=== PATIENT | male | born 1960 | race Caucasian/White ===

== ENCOUNTER 2020-01-03 11:49 | Emergency (ER) | payer BC ==
[2020-01-03] MEDS ORDERED: Meclizine 12.5 MG Tab PO ONE ×2 (11:50→14:46)
[2020-01-03 12:31] LABS: CHLORIDE,CL 102 mEq/L (98-106); SODIUM,NA 139 mEq/L (136-145)
[2020-01-03] MEDS ORDERED: Acetaminophen 500 MG Tab PO ONE (14:23)
[2020-01-03] MEDS ORDERED: Sodium Chloride 0.9% 1,000 ML IV ONE (14:24)
--- NOTE | 2020-01-03 14:51 | EDM.PDOC ---
ED HPI GENERAL MEDICAL PROBLEM - General Chief Complaint: General Stated Complaint: "I dizzy" Time Seen by Provider: 01/03/20 11:58 Source of Information: Reports: Patient History Limitations: Reports: No Limitations - History of Present Illness INITIAL COMMENTS - FREE TEXT/NARRATIVE: Patient is a 59 year old male that presents to the ER. Patient reports that since this morning having dizziness, worse with opening eyes, then closing eyes , and positional changes. Patient reports that he also has a numb headache sensation to the right frontal head. Patient reports he thought his blood pressure was up. Onset: Today Onset Date: 01/03/20 Onset Time: 08:00 Location: Reports: Head Severity: Moderate Improves with: Reports: None Worsens with: Reports: None Associated Symptoms: Reports: Headaches. Denies: Confusion, Chest Pain, Cough, cough w sputum, Diaphoresis, Fever/Chills, Loss of Appetite, Malaise, Nausea/ Vomiting, Rash, Seizure, Shortness of Breath, Syncope, Weakness - Related Data Allergies Allergy/AdvReac Type Severity Reaction Status Date / Time atorvastatin [From Lipitor] Allergy ach Verified 01/03/20 11:57 Home Meds: Home Meds Cholecalciferol (Vitamin D3) [Vitamin D3] 50 mcg PO DAILY PRN 01/03/20 [History] Cinnamon Bark [Cinnamon] 500 mg PO DAILY 01/03/20 [History] Cranberry Fruit Extract [Cranberry] 600 mg PO DAILY 01/03/20 [History] Fluticasone Propionate [Flonase Allergy Relief] 50 mcg INH DAILY PRN 01/03/20 [ History] Glucosam/Chondr/Collagn/Hyalur [Glucosamine & Chondroitin Cap] 1 tab PO DAILY [History] Inulin/Chromium Picolinate [Fiber Gummies] 1 tab PO DAILY 01/03/20 [History] Losartan/Hydrochlorothiazide [Losartan-HCTZ 100-25 MG] 1 tab PO DAILY 01/03/20 [ History] Meclizine HCl 25 mg PO TID PRN 01/03/20 [History] Multivitamin/Iron/Folic Acid [Centrum Adults Tablet] 1 tab PO DAILY 01/03/20 [ History] Niacinamide [Niacin] 250 mg PO DAILY 01/03/20 [History] Nutritional Supplement [Hi-Guy] 1,000 ml PO DAILY 01/03/20 [History] predniSONE [Prednisone] 40 mg PO DAILY 01/03/20 [History] Past Medical History Cardiovascular History: Reports: Hypertension Musculoskeletal History: Reports: Arthritis Endocrine/Metabolic History: Reports: Obesity/BMI 30+ Social & Family History - Tobacco Use Smoking Status *Q: Never Smoker Second Hand Smoke Exposure: No ED ROS GENERAL - Review of Systems Review Of Systems: See Below Constitutional: Reports: No Symptoms HEENT: Reports: No Symptoms Respiratory: Reports: No Symptoms Cardiovascular: Reports: No Symptoms Endocrine: Reports: No Symptoms GI/Abdominal: Reports: No Symptoms. Denies: Nausea, Vomiting : Reports: No Symptoms Musculoskeletal: Reports: No Symptoms Skin: Reports: No Symptoms Neurological: Reports: Dizziness, Headache (numbness right forehead behind the eye). Denies: Confusion, Numbness, Pre-Existing Deficit, Seizure, Syncope, Tingling, Tremors, Trouble Speaking, Difficulty Walking, Weakness, Change in Speech, Gait Disturbance Psychiatric: Reports: No Symptoms Hematologic/Lymphatic: Reports: No Symptoms Immunologic: Reports: No Symptoms ED EXAM, GENERAL - Physical Exam Exam: See Below Exam Limited By: No Limitations General Appearance: Alert, WD/WN, No Apparent Distress Eye Exam: Bilateral Eye: EOMI, Normal Inspection, PERRL Ears: Normal External Exam, Normal Canal, Hearing Grossly Normal, Normal TMs Ear Exam: Bilateral Ear: Auricle Normal, Canal Normal, TM normal Nose: Normal Inspection, Normal Mucosa, No Blood Throat/Mouth: Normal Inspection, Normal Lips, Normal Teeth, Normal Gums, Normal Oropharynx, Normal Voice, No Airway Compromise Head: Atraumatic, Normocephalic Neck: Normal Inspection, Supple, Non-Tender, Full Range of Motion Respiratory/Chest: No Respiratory Distress, Lungs Clear, Normal Breath Sounds, No Accessory Muscle Use Cardiovascular: Normal Peripheral Pulses, Regular Rate, Rhythm, No Edema, No Gallop, No JVD, No Murmur, No Rub Peripheral Pulses: 2+: Carotid (L), Carotid (R), Radial (L), Radial (R), Posterior Tibial (L), Posterior Tibial (R), Dorsalis Pedis (L), Dorsalis Pedis ( R) GI/Abdominal: Soft, Non-Tender Back Exam: Normal Inspection, Full Range of Motion Extremities: Normal Inspection, Normal Range of Motion, Non-Tender, No Pedal Edema, Normal Capillary Refill Neurological: Alert, Oriented, CN II-XII Intact, Normal Cognition, Normal Gait, No Motor/Sensory Deficits Psychiatric: Normal Affect, Normal Mood Skin Exam: Warm, Dry, Intact, Normal Color, No Rash Lymphatic: No Adenopathy Course - Vital Signs Last Recorded V/S: Last Vital Signs Temp 98.8 F 01/03/20 11:59 Pulse 65 01/03/20 11:59 Resp 16 01/03/20 11:59 BP 163/86 H 01/03/20 11:59 Pulse Ox 99 01/03/20 11:59 Orthostatic Blood Pressure [ 146/86 Standing] Orthostatic Blood Pressure [ 140/83 Sitting] Orthostatic Blood Pressure [ 156/95 Supine] - Orders/Labs/Meds Orders: Active Orders 24 hr Category Date Time Status EKG Documentation Completion [RC] STAT Care 01/03/20 11:51 Active Orthostatic Vital Signs [RC] ASDIRECTED Care 01/03/20 12:52 Active CTA Head W & W/O Contrast [Ang Head] [CT] Stat Exams 01/03/20 14:46 Taken Chest 2V [CR] Stat Exams 01/03/20 11:52 Taken Head wo Cont [CT] Stat Exams 01/03/20 11:51 Taken diazePAM [Valium] Med 01/03/20 17:34 Once 5 mg PO ONETIME ONE Labs: Laboratory Tests 01/03/20 01/03/20 Range/Units 11:51 11:51 WBC 4.8 L (5.0-10.0) 10^3/uL RBC 5.43 (4.50-6.00) 10^6/uL Hgb 16.2 (14.0-18.0) g/dL Hct 45.6 (40.0-54.0) % MCV 84.0 (82.0-94.0) fL MCH 29.8 (27.0-32.0) pg MCHC 35.5 (33.0-38.0) g/dL RDW Coeff of Lynn 12.5 (11.0-15.0) % Plt Count 206 (150-400) 10^3/uL Neut % (Auto) 58.8 (35-85) % Lymph % (Auto) 27.3 (10-55) % [place]mort[place] % (Auto) 11.2 (0-16) % Eos % (Auto) 2.1 (0-5) % Baso % (Auto) 0.6 (0-3) % Neut # (Auto) 2.84 (1.80-7.00) 10^3/uL Lymph # (Auto) 1.32 (1.00-4.80) 10^3/uL [place] # (Auto) 0.54 (0.00-0.80) 10^3/uL Eos # (Auto) 0.10 (0.00-0.45) 10^3/uL Baso # (Auto) 0.03 10^3/uL Sodium 139 (136-145) mEq/L Potassium 3.4 L (3.5-5.0) mEq/L Chloride 102 (98-106) mEq/L Carbon Dioxide 29 (21-32) mmol/L BUN 13 (7-18) mg/dL Creatinine 1.1 (0.7-1.3) mg/dL Est Cr Clr Drug Dosing 73.74 mL/min Estimated GFR (MDRD) > 60 (>=60) mL/min Glucose 137 H D (75-99) mg/dL Calcium 8.7 (8.4-10.1) mg/dL Total Bilirubin 1.0 (0.0-1.0) mg/dL AST 22 (15-37) U/L ALT 40 (12-78) U/L Alkaline Phosphatase 78 (46-116) U/L Creatine Kinase 110 (35-232) U/L Troponin I < 0.017 (0.00-0.06) ng/mL NT-Pro-B Natriuret Pep 34 (0-1000) pg/mL Total Protein 7.3 (6.4-8.2) g/dL Albumin 3.9 (3.4-5.0) g/dL Meds: Medications Discontinued Medications Generic Name Dose Route Start Last Admin Trade Name Freq PRN Reason Stop Dose Admin Acetaminophen 1,000 mg 01/03/20 14:23 01/03/20 14:55 Tylenol Extra Strength PO 01/03/20 14:24 1,000 mg ONETIME ONE Administration Diazepam 5 mg 01/03/20 14:42 01/03/20 15:03 Valium IVPUSH 01/03/20 14:43 5 mg ONETIME ONE Administration Sodium Chloride 1,000 mls @ 1,000 mls/hr 01/03/20 14:24 01/03/20 15:27 Normal Saline IV 01/03/20 15:23 999 mls/hr .BOLUS ONE Infusion Iopamidol 100 ml 01/03/20 15:54 01/03/20 16:23 Isovue-370 (76%) IVPUSH 01/03/20 15:55 100 ml ONETIME ONE Administration Meclizine HCl 12.5 mg 01/03/20 14:46 01/03/20 15:02 Antivert PO 01/03/20 14:47 12.5 mg ONETIME ONE Administration - Re-Assessments/Exams Free Text/Narrative Re-Assessment/Exam: 01/03/20 14:51 Spoke to E-Carrie about this patient. Doctor recommends treating with Meclizine, Valium, fluids, and doing a CTA head to Aneurysm. 01/03/20 17:37 Patient reports that he is felling much better and no longer dizzy. He reports his numbness headache has resolved. Will discharge. Departure - Departure Time of Disposition: 17:33 Disposition: Home, Self-Care 01 Condition: Fair Clinical Impression: Vertigo - Discharge Information *PRESCRIPTION DRUG MONITORING PROGRAM REVIEWED*: Not Applicable *COPY OF PRESCRIPTION DRUG MONITORING REPORT IN PATIENT JOSE L: Not Applicable Instructions: Vertigo, [id number], Dizziness, [id number] Referrals: PCP,Unknown [Primary Care Provider] - Forms: ED Department Discharge Additional Instructions: Followup with your primary care provider Followup with primary care provider if no improvement in 3 days May recommend MRI if no improvement Return to the ER for worsening of condition or any emergent concerns Meclizine 12.5mg 1 pill every 6 hours as needed for vertigo Valium 5mg 1 pill every 8 hours as needed for vertigo Sepsis Event Note - Evaluation Sepsis Screening Result: No Definite Risk - Focused Exam Vital Signs: Vital Signs Temp Pulse Resp BP Pulse Ox 01/03/20 11:59 98.8 F 65 16 163/86 H 99 Date Exam was Performed: 01/03/20 Time Exam was Performed: 17:37 - My Orders Last 24 Hours: My Active Orders 01/03/20 11:51 EKG Documentation Completion [RC] STAT Head wo Cont [CT] Stat 01/03/20 11:52 Chest 2V [CR] Stat 01/03/20 12:52 Orthostatic Vital Signs [RC] ASDIRECTED 01/03/20 14:46 CTA Head W & W/O Contrast [Ang Head] [CT] Stat 01/03/20 17:34 diazePAM [Valium] 5 mg PO ONETIME ONE - Assessment/Plan Last 24 Hours: My Active Orders 01/03/20 11:51 EKG Documentation Completion [RC] STAT Head wo Cont [CT] Stat 01/03/20 11:52 Chest 2V [CR] Stat 01/03/20 12:52 Orthostatic Vital Signs [RC] ASDIRECTED 01/03/20 14:46 CTA Head W & W/O Contrast [Ang Head] [CT] Stat 01/03/20 17:34 diazePAM [Valium] 5 mg PO ONETIME ONE Plan: PLEASE SEE RN NOTE FOR PFSH.
[2020-01-03] MEDS ORDERED: Iopamidol 755 Mg/ML 100 ML Bottle IVPUSH ONE (15:54)
[2020-01-03] MEDS ORDERED: Diazepam 5 MG Tab PO ONE (17:34)
[2020-01-03] MEDS ORDERED: Take Home: Meclizine 12.5 MG Tab, 4 Tab Pack PO ONE (17:58)
== END 2020-01-03 18:20 | disposition home or self-care (01) ==
LOC: CC.ED 11:49
DX: R42 Dizziness and giddiness (principal); I10 Essential (primary) hypertension; E66.9 Obesity, unspecified; Z79.899 Other long term (current) drug therapy; Z88.8 Allergy status to other drugs, medicaments and biological substances
CPT/HCPCS: 36415; 70450; 70496; 71046; 80053; 82550; 83880; 84484; 85025; 93005; 96361; 96374; 99284; A9270; J3360; J7030; Q9967